=== PATIENT | male | born 1945 | race Caucasian/White ===

== ENCOUNTER 2017-05-18 01:31 | Observation (INO) ==
[2017-05-18 02:05] LABS: Basophils % 0.3 %; Eosinophils # 0.2 K/mcL (0.0-0.6); Eosinophils % 1.2 %; Hematocrit 40.1 % (37.5-50.1); Hemoglobin 12.8 g/dL (12.9-16.9); Immature Granulocytes % 0.7 % (0-4); Immature Platelets 4.6 % (1.1-6.1); Lymphocytes # 1.4 K/mcL (0.6-4.6); Lymphocytes % 10.7 %; Mean Corpuscular HGB Conc 31.9 g/dL (31.6-35.5); Mean Corpuscular Hemoglobin 29.6 pg (28.0-33.3); Mean Corpuscular Volume 92.6 fL (83.0-100.0); Mean Platelet Volume 10.2 fL (9.4-12.4); Monocytes % 7.4 %; Neutrophils # 10.3 K/mcL (1.6-8.9); Platelet Count 220 K/mcL (140-400); Red Blood Count 4.33 M/mcL (4.19-5.50); Red Cell Distribution Width 12.7 % (11.5-14.5); Segmented Neutrophils % 79.7 %
[2017-05-18 02:13] LABS: Bilirubin,Urine Small (Negative); Blood,Urine Negative (Negative); Clarity,Urine Clear (Clear); Color,Urine Yellow (Yellow); Glucose,Urine (UA) Normal (Normal); Ketones,Urine Negative (Negative); Leukocyte Esterase,Urine Negative (Negative); Nitrite,Urine Negative (Negative); PH,Urine 5.5 pH Units (5.0-8.0); Protein,Urine Negative (Neg-Trace); Specific Gravity,Urine 1.021 (1.010-1.025); Urobilinogen,Urine Normal (Normal)
[2017-05-18 02:21] LABS: Albumin 3.7 g/dL (3.5-5.0); Bilirubin,Direct 0.2 mg/dL (0.0-0.5); Bilirubin,Indirect 0.2 mg/dL (0.0-1.2); Bilirubin,Total 0.4 mg/dL (0.2-1.2); Calcium 9.2 mg/dL (8.6-10.8); Globulin 3.7 g/dL (2.4-3.5); Potassium 4.2 mEq/L (3.5-4.5); Total Protein 7.4 g/dL (6.0-8.3)
[2017-05-18] MEDS ORDERED: 0.9 % Sodium Chloride 1,000 ML IVC ONE (02:30)
[2017-05-18] MEDS ORDERED: Ondansetron 4 MG/2 ML VIAL IVP ONE (02:30)
--- NOTE | 2017-05-18 02:33 | Emergency Department Note ---
Disposition Clinical Impression: Near syncope Disposition: Admitted As Inpatient Condition: Good Dizziness HPI - General Chief Complaint: ED Dizziness Stated Complaint: dizzy/n/v Time Seen by Provider: 05/18/17 02:11 Source: patient, family Mode of arrival: private vehicle Limitations: no limitations Nursing Notes Reviewed: Yes Vital Signs Reviewed: Yes - History of Present Illness HPI Narrative: 71-year-old male history of hypertension, CAD, hyperlipidemia who presents to the ER with a chief complaint of near syncope. Patient states around midnight tonight when he went to stand up he felt lightheaded and like he was going to pass out. He states he continued to feel dizzy and became nauseous. When he got home his symptoms worsen and his is concerned it might be his heart. They report his prior heart attack had no symptoms and they will did not know about until after the fact. He reports one heart stent roughly 4 years ago. He denies any chest pain. No loss of consciousness. Does still feel nauseated. Did have shortness of breath with the event that has resolved. No history of DVT or PE. No other complaints. Pt Subjective Complaint: near syncope Onset (ago): hour(s) Timing: sudden onset Description: lightheadedness History of similar episodes: No History of trauma: No Severity: moderate Improves with: nothing Worsens with: nothing Associated symptoms: Reports: shortness of breath, nausea. Denies: chest pain, fever, syncope, vomiting - Related Data Allergies Allergy/AdvReac Type Severity Reaction Status Date / Time Latex, Natural Rubber AdvReac Rash Verified 01/09/17 08:41 All systems ED: reviewed and negative except as stated. Constitutional: Denies: fever Cardiovascular: Denies: chest pain Respiratory: Reports: dyspnea. Denies: cough Gastrointestinal: Reports: nausea. Denies: abdominal pain, vomiting, diarrhea Neurological: Reports: weakness. Denies: headache, numbness, paresthesias Past Medical History - Past Medical History Attestation: Yes The following information was validated with the patient. Source: patient Medical history: Reports: COPD, GERD, hyperlipidemia, hypertension, myocardial infarction Psychiatric history: Reports: no psych history - Social History Smoking Status: Never smoker Smokeless Tobacco Status: No Alcohol use: Reports: none Drug use: Reports: none Physical Exam - General Limitations: no limitations General appearance: alert, in no apparent distress - Head Head exam: atraumatic, normocephalic, normal inspection - Eye Eye exam: Present: normal appearance, EOMI - ENT ENT exam: normal exam - Neck Neck exam: Present: normal inspection, full ROM - Chest Chest inspection: Present: normal inspection, symmetric chest wall rise - Respiratory Respiratory exam: Present: normal lung sounds bilaterally - Cardiovascular Cardiovascular exam: Present: regular rate, normal rhythm, normal heart sounds - Abdominal Exam Abdominal exam: Present: soft, Non-Tender. Absent: tenderness - Extremities Exam Extremities exam: Present: normal inspection, full ROM - Expanded Upper Extremity Exam Shoulder exam: Present: normal inspection, full ROM Arm exam: Present: normal inspection, full ROM Elbow exam: Present: normal inspection, full ROM Forearm/Wrist exam: Present: normal inspection, full ROM Hand exam: Present: normal inspection, full ROM Vascular exam: Normal: radial pulse - Expanded Lower Extremity Exam Hip/Pelvis exam: Present: normal inspection, full ROM Upper leg exam: Present: normal inspection, full ROM Knee exam: Present: normal inspection, full ROM Lower leg exam: Present: normal inspection, full ROM Ankle exam: Present: normal inspection, full ROM Foot/toe exam: Present: normal inspection, full ROM Neurovascular/Tendon exam: Absent: motor deficit, sensory deficit - Neurological Exam Neurological exam: Present: other (GCS 15. Nonfocal neurologic exam. Moves all extremities equally.) - Psychiatric Psychiatric exam: Present: normal affect, normal mood - Skin Skin exam: Present: warm, dry, intact, normal color Course Course Narrative: Patient seen and examined. Vital signs reviewed. We will obtain an EKG as well as labs including troponin. Patient will also be given a liter of IV fluids and 4 mg of Zofran. Patient will likely require admission for near syncope Vital Signs Temperature 97.6 F 05/18/17 01:31 Pulse Rate 70 05/18/17 01:31 Respiratory Rate 16 05/18/17 01:31 Blood Pressure 150/91 05/18/17 01:31 O2 Sat by Pulse Oximetry 95 05/18/17 01:31 Temperature 97.6 F 05/18/17 01:31 Pulse Rate 77 05/18/17 03:27 Respiratory Rate 18 05/18/17 03:27 Blood Pressure 108/61 05/18/17 03:27 O2 Sat by Pulse Oximetry 94 05/18/17 03:27 Oxygen Delivery Oxygen Delivery Room Air Dizziness - MDM Narrative Medical decision making narrative: 71-year-old male presents to the ER due to a near syncopal episode. He has had persistent dizziness and nausea. Denies any chest pain abated Hessian shortness of breath. Prior cardiac history. Patient provided with IV fluids and Zofran here. His EKG demonstrates a left bundle branch block which is not new. Troponin is negative. Continues to have nausea and feeling lightheaded. Patient admitted to the hospitalist service for further management. - Lab Data Lab results reviewed: Yes I reviewed the patient's lab results. Result diagrams: 05/18/17 01:55 05/18/17 01:55 Lab Results 05/18/17 05/18/17 05/18/17 Range/Units 01:55 01:55 01:55 WBC 12.9 H (4.3-11.1) K/mcL RBC 4.33 (4.19-5.50) M/mcL Hgb 12.8 L (12.9-16.9) g/dL Hct 40.1 (37.5-50.1) % MCV 92.6 (83.0-100.0) fL MCH 29.6 (28.0-33.3) pg MCHC 31.9 (31.6-35.5) g/dL RDW 12.7 (11.5-14.5) % Plt Count 220 (140-400) K/mcL MPV 10.2 (9.4-12.4) fL Immature Gran % 0.7 (0-4) % Seg Neutrophils % 79.7 % Lymphocytes % 10.7 % Monocytes % 7.4 % Eosinophils % 1.2 % Basophils % 0.3 % Neutrophils # 10.3 H (1.6-8.9) K/mcL Lymphocytes # 1.4 (0.6-4.6) K/mcL Monocytes # 1.0 (0.0-1.3) K/mcL Eosinophils # 0.2 (0.0-0.6) K/mcL Basophils # 0.0 (0.0-0.2) K/mcL Immature Plt Fraction 4.6 (1.1-6.1) % Sodium 140 (136-145) mEq/L Potassium 4.2 (3.5-4.5) mEq/L Chloride 99 (98-109) mEq/L Carbon Dioxide 31 H (19-29) mEq/L BUN 25 (8-26) mg/dL Creatinine 1.73 H (0.72-1.25) mg/dL Est GFR ( Amer) 48 L (> 60) Est GFR (Non-Af Amer) 39 L (> 60) BUN/Creatinine Ratio 14 (6-26) Glucose 178 H (70-99) mg/dL Calculated Osmolality 299 (280-300) Calcium 9.2 (8.6-10.8) mg/dL Total Bilirubin 0.4 (0.2-1.2) mg/dL Direct Bilirubin 0.2 (0.0-0.5) mg/dL Indirect Bilirubin 0.2 (0.0-1.2) mg/dL AST 17 (5-34) Units/L ALT 19 (0-55) Units/L Alkaline Phosphatase 79 (38-126) Units/L Troponin I 0.00 (0-0.03) ng/mL Serum Total Protein 7.4 (6.0-8.3) g/dL Albumin 3.7 (3.5-5.0) g/dL Globulin 3.7 H (2.4-3.5) g/dL Albumin/Globulin Ratio 1.0 L (1.1-2.2) Lipase 40 (8-78) Units/L Urine Color (Yellow) Urine Clarity (Clear) Urine pH (5.0-8.0) pH Units Ur Specific Gipsy (1.010-1.025) Urine Protein (Neg-Trace) mg/dL Urine Glucose (UA) (Normal) mg/dL Urine Ketones (Negative) mg/dL Urine Blood (Negative) Urine Nitrite (Negative) Urine Bilirubin (Negative) Urine Urobilinogen (Normal) mg/dL Ur Leukocyte Esterase (Negative) Ur Culture Indicated? (NO) 05/18/17 Range/Units 02:00 WBC (4.3-11.1) K/mcL RBC (4.19-5.50) M/mcL Hgb (12.9-16.9) g/dL Hct (37.5-50.1) % MCV (83.0-100.0) fL MCH (28.0-33.3) pg MCHC (31.6-35.5) g/dL RDW (11.5-14.5) % Plt Count (140-400) K/mcL MPV (9.4-12.4) fL Immature Gran % (0-4) % Seg Neutrophils % % Lymphocytes % % Monocytes % % Eosinophils % % Basophils % % Neutrophils # (1.6-8.9) K/mcL Lymphocytes # (0.6-4.6) K/mcL Monocytes # (0.0-1.3) K/mcL Eosinophils # (0.0-0.6) K/mcL Basophils # (0.0-0.2) K/mcL Immature Plt Fraction (1.1-6.1) % Sodium (136-145) mEq/L Potassium (3.5-4.5) mEq/L Chloride (98-109) mEq/L Carbon Dioxide (19-29) mEq/L BUN (8-26) mg/dL Creatinine (0.72-1.25) mg/dL Est GFR ( Amer) (> 60) Est GFR (Non-Af Amer) (> 60) BUN/Creatinine Ratio (6-26) Glucose (70-99) mg/dL Calculated Osmolality (280-300) Calcium (8.6-10.8) mg/dL Total Bilirubin (0.2-1.2) mg/dL Direct Bilirubin (0.0-0.5) mg/dL Indirect Bilirubin (0.0-1.2) mg/dL AST (5-34) Units/L ALT (0-55) Units/L Alkaline Phosphatase (38-126) Units/L Troponin I (0-0.03) ng/mL Serum Total Protein (6.0-8.3) g/dL Albumin (3.5-5.0) g/dL Globulin (2.4-3.5) g/dL Albumin/Globulin Ratio (1.1-2.2) Lipase (8-78) Units/L Urine Color Yellow (Yellow) Urine Clarity Clear (Clear) Urine pH 5.5 (5.0-8.0) pH Units Ur Specific G[place]y 1.021 (1.010-1.025) Urine Protein Negative (Neg-Trace) mg/dL Urine Glucose (UA) Normal (Normal) mg/dL Urine Ketones Negative (Negative) mg/dL Urine Blood Negative (Negative) Urine Nitrite Negative (Negative) Urine Bilirubin Small H (Negative) Urine Urobilinogen Normal (Normal) mg/dL Ur Leukocyte Esterase Negative (Negative) Ur Culture Indicated? NO (NO) - EKG Data EKG attestation: Yes I reviewed and interpreted this EKG. EKG results narrative: EKG demonstrates sinus rhythm with left bundle branch block with a rate of 64 bpm. Left axis deviation. QRS duration. Prolonged at 162. QTC 476 there is T -wave flattening in lead [address] and aVL. No gross ST elevations or depressions. No acute ischemic findings. No significant changes from previous EKG dated . S.Asher - [facility]rec[place] Situation: Demographics, MOA Background: Presenting Complaint, Relevant PMH, Meds, & Allergies Assessment: Vital Signs, Course and respsone to treatment, Exam Concerns, Patient/Family Expectation, Pertinant Lab Results, Outstanding Labs Recommendation: Barrier(s) to disposition, Recommendation based on pending studies, treatments, or consults SMendel Report Given to: Dr. Damon Paige Repor Time: 04:18 Attestation Statement - Attestation Attestation: I examined this patient and my medical decision-making was reviewed with the Resident Physician. I agree with the documented findings, disposition and treatment plan as described except to the extent set forth below. Patient to the ED with a chief complaint of dizziness. Patient states it started after he was at a bonfire tonight. He sat up and felt dizzy. States is worse when he stands. It was followed by several episodes of vomiting. No chest pain. They were concerned because he had a heart attack before with no symptoms. Exam shows him in no acute distress and neurologically intact. Plan. The patient's workup appears unremarkable. He is admitted for further treatment and workup.
--- NOTE | 2017-05-18 05:32 | Internal Med History&Physical ---
<Theodore Pena - Last Filed: 05/18/17 06:19> Date of Encounter: 05/18/17 Time of Encounter: 05:00 Assessment and Plan (1) Near syncope Current visit: Yes Status: Acute Hx of hypertension, CAD, hyperlipidemia, COPD, previous CO with stenting 1. Was at [facility] with family, had episode of near-syncope, light headedness, vertigo, disequilibrium after standing from sitting position. Patient was pale and clammy per . No slurring of speech or facial droop, numbness, tingling, weakness, chest pain, any shortness of breath above his baseline. He did not pass out, did not fall or hit his head, denies any abdominal pain or diarrhea, denies fever. He says that this has happened in the past before but "never this bad." He was unable to tell me when the last time he experienced near syncope. History more consistent with orthostatic hypotension, but will pursue cardiac workup. EKG showed a left bundle branch block that is chronic for the patient with no acute ST elevation or depression. Troponin 0.00. Mild leukocytosis of 12.9. Hemoglobin 12.8. Creatinine near baseline 1.73. UA negative. BP currently in 100s/70s. Echocardiogramon 04/29/17 shows LVEF 55-60% Orthostatics Alcohol level UDS Maintenance fluids Trend troponin Carotid US doppler Hold BP meds, consider restarting if he becomes hypertensive Tele monitoring (2) Hypertension Current visit: Yes Status: Acute History of essential hypertension. Patient takes carvedilol 12.5 mg twice daily , lisinopril 5 mg daily. Blood pressure currently 100s over 70s. We will hold blood pressure medications for now. Restart if the patient becomes hypertensive. Qualifiers: Hypertension type: essential hypertension Qualified Code(s): I10 - Essential (primary) hypertension (3) GERD (gastroesophageal reflux disease) Current visit: Yes Status: Acute Continue home medication of omeprazole Qualifiers: Esophagitis presence: esophagitis presence not specified Qualified Code(s) : K21.9 - Gastro-esophageal reflux disease without esophagitis (4) Hyperlipidemia Current visit: Yes Status: Acute Continue home medication of simvastatin Qualifiers: Hyperlipidemia type: unspecified Qualified Code(s): E78.5 - Hyperlipidemia , unspecified (5) COPD (chronic obstructive pulmonary disease) Current visit: Yes Status: Acute No current wheezes or dyspnea on exam. Well-controlled. Continue home medication of albuterol every 6 hours as needed, Symbicort 80 twice daily Qualifiers: COPD type: unspecified COPD Qualified Code(s): J44.9 - Chronic obstructive pulmonary disease, unspecified (6) DVT prophylaxis Current visit: Yes Status: Acute Heparin subcutaneous 5000 units twice daily Internal Medicine - H&P: HPI Chief complaint: Near-syncope Admitted From: Emergency Dept Plans for Post Hospital Care: Home History of present illness: Mr. Reynolds is a 71 year old male with past medical history of hypertension, CAD , hyperlipidemia, COPD, previous CO with stenting 1. He presented today to the ED due to near-syncope. He said that around midnight tonight he was sitting around a campfire with family. When he stood up, he felt lightheaded and like he was going to pass out. He also felt like things were spinning around him. He became nauseous and then vomited. The states that the patient was very pale and clammy. She also notes that the patient seemed off balance, was holding onto a chair to keep himself from falling over. She did not note any slurring of speech or facial droop at that time. Patient denied any numbness, tingling, weakness at that time. was afraid that this might be a heart attack since the patient's previous heart attack had no major symptoms. The patient denied any chest pain, any shortness of breath above his baseline, did not pass out, did not fall or hit his head, denies any abdominal pain or diarrhea, denies fever. He says that this has happened in the past before but "never this bad." He was unable to tell me when the last time he experienced near syncope. Past Med Surg Social Fam HX - Past Medical History Medical history: COPD, GERD, hyperlipidemia, hypertension, myocardial infarction Psychiatric history: no psych history - Social History Smoking Status: Never smoker Smokeless Tobacco Status: No Alcohol use: none Drug use: none - Family History Mother Hx Family Cardiac Disorders: Yes (afib) Internal Medicine - H&P: Meds Acetaminophen [Tylenol] 1,000 mg PO BID PRN 05/18/17 [History] Albuterol Sulfate [Albuterol Inhaler] 0 puff IH Q4HR PRN 05/18/17 [History] Aspirin [Lo-Dose Aspirin EC] 81 mg PO DAILY 05/18/17 [History] Budesonide/Formoterol 80/4.5 [Symbicort 80/4.5] 2 puff IH BID 05/18/17 [History ] Carvedilol 12.5 mg PO BID 05/18/17 [History] Cyclosporine [Restasis] 1 each OP BID 05/18/17 [History] Ergocalciferol (VITAMIN D2) [Vitamin D2] 50,000 unit PO QWEEK 05/18/17 [History] Furosemide [Lasix] 80 mg PO BIDWM 05/18/17 [History] Lisinopril [Zestril] 5 mg PO HS 05/18/17 [History] Loratadine [Claritin] 10 mg PO DAILY 05/18/17 [History] Nitroglycerin [Nitrostat] 0.4 mg SL Q5M PRN 05/18/17 [History] Omeprazole [PriLOSEC] 20 mg PO BID 05/18/17 [History] Potassium Chloride [K-Tab ER] 40 meq PO DAILY 05/18/17 [History] Ranitidine HCl [Acid Logging Crew Supervisor] 150 mg PO DAILY PRN 05/18/17 [History] Ranolazine [Ranexa] 1,000 mg PO BID 05/18/17 [History] Simvastatin [Zocor] 40 mg PO HS 05/18/17 [History] 3 Allergy/AdvReac Type Severity Reaction Status Date / Time Latex, Natural Rubber AdvReac Rash Verified 01/09/17 08:41 All Systems PM: A 10-system review of systems was performed and is negative for pertinent findings except as documented above in the HPI. - Constitutional Constitutional: no chills, no fever(s) - EENT Eyes: no change in vision Nose, mouth and throat: no neck pain - Cardiovascular Cardiovascular ROS IM: no chest pain - Respiratory Respiratory: no dyspnea - Gastrointestinal Gastrointestinal: nausea, vomiting, no abdominal pain, no diarrhea - Neurological Neurological ROS: disequilibrium, vertigo, no numbness, no tingling, no weakness - Constitutional Vitals: Temp Pulse Resp BP Pulse Ox 97.6 F 70 16 109/73 95 05/18/17 04:46 05/18/17 04:46 05/18/17 04:46 05/18/17 04:46 05/18/17 04:46 General appearance: Present: A&O X 3, no acute distress, obese, answers questions appropriately - Head Head exam: Present: atraumatic, normocephalic - Eye Eye exam: Present: PERRL, conjuntiva pink, sclera anicteric Pupils: Present: PERRL - Neck Neck exam general surgery: Present: supple, trachea midline. Absent: lymphadenopathy - Respiratory Respiratory exam: Present: CTAB. Absent: accessory muscle use, rales, rhonchi, wheezes - Cardiovascular Cardiovascular exam: Present: RRR, +S1, +S2. Absent: diastolic murmur, gallop, rubs, systolic murmur - GI/Abdominal GI/Abdominal exam: Present: normal bowel sounds, soft, no peritoneal signs. Absent: distended, tenderness - Extremities Exam Extremities exam: Present: warm, radial pulses palpable and symmetrical. Absent : calf tenderness, cyanotic, pedal edema - Neurological Exam Neurological exam: Present: alert, CN II-XII intact, oriented X3, no focal deficits, strengths equal and symetr throughout. Absent: motor sensory deficit , pronater drift, facial droop, speech deficit - Skin Skin exam: Present: dry, intact Internal Med - H&P Results - Labs CBC & Chem 7: 05/18/17 01:55 05/18/17 01:55 <Andre Jose - Last Filed: 05/18/17 06:42> Date of Encounter: 05/18/17 Internal Medicine - H&P: HPI History of present illness: Mr. Reynolds is a 71 year old male All Systems PM: A 10-system review of systems was performed and is negative for pertinent findings except as documented above in the HPI. - Constitutional Vitals: Temp Pulse Resp BP Pulse Ox 97.6 F 70 16 109/73 95 05/18/17 04:46 05/18/17 04:46 05/18/17 04:46 05/18/17 04:46 05/18/17 04:46 Internal Med - H&P Results - Labs CBC & Chem 7: 05/18/17 01:55 05/18/17 01:55 - Attending Attestation I examined this patient and my medical decision-making was reviewed with the Resident Physician, Dr Theodore Pena. I agree with the documented findings, disposition and treatment plan as described except to the extent set forth below. My findings are summarized below: Patient reports a presyncopal episode after standing up from a dinner event last night. This was followed by nausea and vomiting. On exam the patient is in no acute distress. Heart is regular with normal S1- S2. Lungs are clear. Abdomen is obese, soft and nontender Troponin was negative. EKG with no ischemic changes Plan: Check orthostatic vital signs. Hold blood pressure medication. Gentle IV fluid hydration. Stress test report reviewed in his records from December 2016 shows a defect consistent with artifact and no findings suggestive of ischemia. Echocardiogram within normal limits last month.
[2017-05-18] MEDS ORDERED: Naloxone 0.4 MG/ML INJ IVP PRN (06:26)
[2017-05-18] MEDS ORDERED: Ondansetron 4 MG/2 ML VIAL IVP PRN (06:26)
[2017-05-18] MEDS ORDERED: Albuterol 2.5 MG/3 ML NEBULIZER IH PRN (06:29)
[2017-05-18] MEDS ORDERED: 0.9 % Sodium Chloride 1,000 ML IVC SCH (06:30)
[2017-05-18] MEDS ORDERED: *HR* Heparin 5,000 UNIT/ML VIAL SQ SCH (07:00)
[2017-05-18 08:58] LABS: Amphetamine Screen,Urine Negative ng/mL (Cutoff=1000); Barbiturate Screen,Urine Negative ng/mL (Cutoff=200); Benzodiazepines Screen,Urine Negative ng/mL (Cutoff=200); Cannabinoid Screen,Urine Negative ng/mL (Cutoff = 50); Cocaine Screen,Urine Negative ng/mL (Cutoff= 300); Opiate Screen,Urine Negative ng/mL (Cutoff=300); Phencyclidine Screen,Urine Negative ng/mL (Cutoff=25)
[2017-05-18] MEDS ORDERED: RESTASIS OP SCH (09:00)
[2017-05-18] MEDS ORDERED: Loratadine 10 MG TABLET PO SCH (09:00)
[2017-05-18] MEDS ORDERED: Ranolazine 500 MG TAB.ER.12H PO SCH (09:00)
[2017-05-18] MEDS ORDERED: Budesonide/Formoterol 80/4.5 MDI IH SCH (10:00)
[2017-05-18 11:44] VITALS: BP 117/73
--- NOTE | 2017-05-18 13:32 | Discharge Summary ---
Date of Encounter: 05/18/17 Time of Encounter: 13:30 - Discharge Diagnosis (1) Near syncope Priority: Primary Status: Acute (2) CAD (coronary artery disease) Priority: Secondary Status: Chronic Qualifiers: Coronary Disease-Associated Artery/Lesion type: [place] artery [place] vs. transplanted heart: [place] heart Associated angina: without angina Qualified Code(s): I25.10 - Atherosclerotic heart disease of [place] coronary artery without angina pectoris (3) CKD (chronic kidney disease) Priority: Secondary Status: Chronic Qualifiers: Chronic kidney disease stage: stage 3 (moderate) Qualified Code(s): N18.3 - Chronic kidney disease, stage 3 (moderate) (4) Hypertension Priority: Secondary Status: Chronic Qualifiers: Hypertension type: essential hypertension Qualified Code(s): I10 - Essential (primary) hypertension (5) GERD (gastroesophageal reflux disease) Priority: Secondary Status: Chronic Qualifiers: Esophagitis presence: esophagitis presence not specified Qualified Code(s) : K21.9 - Gastro-esophageal reflux disease without esophagitis (6) Hyperlipidemia Priority: Secondary Status: Chronic Qualifiers: Hyperlipidemia type: unspecified Qualified Code(s): E78.5 - Hyperlipidemia , unspecified (7) COPD (chronic obstructive pulmonary disease) Priority: Secondary Status: Chronic Qualifiers: COPD type: unspecified COPD Qualified Code(s): J44.9 - Chronic obstructive pulmonary disease, unspecified - Discharge Medications Home Medications: Acetaminophen [Tylenol] 1,000 mg PO BID PRN 05/18/17 [History] Albuterol Sulfate [Albuterol Inhaler] 0 puff IH Q4HR PRN 05/18/17 [History] Aspirin [Lo-Dose Aspirin EC] 81 mg PO DAILY 05/18/17 [History] Budesonide/Formoterol 80/4.5 [Symbicort 80/4.5] 2 puff IH BID 05/18/17 [History ] Carvedilol 12.5 mg PO BID 05/18/17 [History] Cyclosporine [Restasis] 1 drop OP BID 05/18/17 [History] Ergocalciferol (VITAMIN D2) [Vitamin D2] 50,000 unit PO QWEEK 05/18/17 [History] Furosemide [Lasix] 80 mg PO DAILY 05/18/17 [History] Lisinopril [Zestril] 10 mg PO DAILY 05/18/17 [History] Loratadine [Claritin] 10 mg PO DAILY 05/18/17 [History] Nitroglycerin [Nitrostat] 0.4 mg SL Q5M PRN 05/18/17 [History] Omeprazole [PriLOSEC] 20 mg PO DAILY 05/18/17 [History] Potassium Chloride [K-Tab ER] 40 meq PO DAILY 05/18/17 [History] Ranitidine HCl [Acid Molecular Physicist] 150 mg PO DAILY PRN 05/18/17 [History] Ranolazine [Ranexa] 1,000 mg PO BID 05/18/17 [History] Simvastatin [Zocor] 40 mg PO HS 05/18/17 [History] Allergies/Adverse Reactions: 3 Allergy/AdvReac Type Severity Reaction Status Date / Time Latex, Natural Rubber Allergy Rash Verified 05/18/17 15:38 Procedures/tests Complete & Pending: Procedures Performed prior 72 hours Category Date Time Status EV carotid duplex imaging BI Routine Y 05/18/17 06:32 Completed Date of admission: 05/18/17 03:59 Primary care physician: Delaney Whatley MD Discharging clinician: Celine Quintero Anticipated date of discharge: 05/18/17 - Patient Status Disposition: Home, Self-Care Condition: Good Functional capacity at discharge: independent ambulation Overall status at discharge: patient is progressing back to baseline - Discharge Instructions Instructions: Syncope (DC) Follow Up With: Delaney Whatley MD [Primary Care Provider] - (Appointment web requested. Office will contact patient at home to schedule. ) Additional Instructions: F/up with PCP in 1-2 weeks - Diet and Activity Activity: resume usual activities as tolerated Diet: low fat, low cholesterol, low salt diet Hospital course: Mr. Reynolds is a 71 year old male with the above medical problems who was admitted with symptoms of near syncope. Initial labs, chest x-ray and EKG done in the emergency room showed no acute abnormality. Patient's presentation was consistent with likely vasovagal episode. He remained hemodynamically stable. Recent echocardiogram showed preserved ejection fraction, mild to moderate concentric LVH, mild diastolic dysfunction of left ventricle. Recent nuclear stress test was negative for ischemia/infarct. Patient underwent bilateral carotid Doppler ultrasound during this admission which shows no hemodynamically significant stenosis. Patient is asymptomatic at this time and is medically stable for discharge with outpatient follow-up. - Time Spent with Patient Total time spent providing and/or coordinating discharge services: Greater than 30 minutes (40 min) - Constitutional Vitals: Temp Pulse Resp BP Pulse Ox 97.8 F 66 18 117/73 92 05/18/17 11:41 05/18/17 11:41 05/18/17 11:54 05/18/17 11:41 05/18/17 11:54 General appearance: Present: A&O X 3, morbidly obese, obese, answers questions appropriately - Respiratory Respiratory exam: Present: decreased breath sounds (B/l decreased air entry). Absent: accessory muscle use, rales, rhonchi, wheezes - Cardiovascular Cardiovascular exam: Present: RRR, +S1, +S2. Absent: diastolic murmur, gallop, rubs, systolic murmur
--- NOTE | 2017-05-19 09:59 | Electrocardiograph Report ---
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
--- NOTE | 2017-05-19 12:50 | Carotid Imaging Report ---
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 Findings Carotid Duplex: Purcell scale imaging combined with Doppler flow analysis suggests normal findings bilaterally. Right: The right proximal common carotid artery has a PSV of 86 cm/s and a EDV of 18 cm/s. The right mid common carotid artery has a PSV of 88 cm/s and a EDV of 19 cm/s. The right distal common carotid artery has a PSV of 85 cm/s and a EDV of 20 cm/s. The right bifurcation has a PSV of 112 cm/s and a EDV of 20 cm/s. The right proximal internal carotid artery has a PSV of 97 cm/s and a EDV of 20 cm/s. The right mid internal carotid artery has a PSV of 101 cm/s and a EDV of 32 cm/s. The right distal internal carotid artery has a PSV of 104 cm/s and a EDV of 35 cm/s. The right eca has a PSV of 103 cm/s and a EDV of 3 cm/s. The right vertebral artery has a PSV of 57 cm/s and a EDV of 11 cm/s. Left: The left proximal common carotid artery has a PSV of 104 cm/s and a EDV of 20 cm/s. The left mid common carotid artery has a PSV of 109 cm/s and a EDV of 24 cm/s. The left distal common carotid artery has a PSV of 94 cm/s and a EDV of 24 cm/s. The left bifurcation has a PSV of 85 cm/s and a EDV of 18 cm/s. The left proximal internal carotid artery has a PSV of 92 cm/s and a EDV of 28 cm/s. The left mid internal carotid artery has a PSV of 92 cm/s and a EDV of 26 cm/s. The left distal internal carotid artery has a PSV of 85 cm/s and a EDV of 30 cm/s. The left eca has a PSV of 112 cm/s and a EDV of 17 cm/s. The left vertebral artery has a PSV of 56 cm/s and a EDV of 15 cm/s. Prior Study: No prior study available for comparison. SPOKE TO MARGY UPON COMPLETION OF EXAM. Carotid Results Right PSV EDV Assessment Proximal CCA 86 18 Normal Mid CCA 88 19 Normal Distal CCA 85 20 Normal Bifurcation 112 20 Normal Proximal ICA 97 20 Normal Mid ICA 101 32 Normal Distal ICA 104 35 Normal ECA 103 3 Normal Vertebral Artery 57 11 Normal Left PSV EDV Assessment Proximal CCA 104 20 Normal Mid CCA 109 24 Normal Distal CCA 94 24 Normal Bifurcation 85 18 Normal Proximal ICA 92 28 Normal Mid ICA 92 26 Normal Distal ICA 85 30 Normal ECA 112 17 Normal Vertebral Artery 56 15 Normal Ratio's Right ICA/CCA Ratio: 1.20 ICA/CCA Values: 104/88 Left ICA/CCA Ratio: 0.80 ICA/CCA Values: 92/109 Updated by Sukumar Greenberg MD on 05/19/2017 12:46:28 PM electronically signed on 05/19/2017 12:46:49 PM with status of Final
== END 2017-05-18 14:45 | disposition home or self-care (01) ==
LOC: 3BNU 01:31 → EMEROO 01:31 → SUATTDRO 03:59 → 3BNU 04:32
PROVIDERS: ADMIT Internal Medicine; ATTEND Internal Medicine